=== PATIENT | female | born 1985 | race Caucasian/White ===

== ENCOUNTER 2017-05-15 17:56 | Emergency (ER) | payer OTHER ==
[2017-05-15] MEDS ORDERED: AMOX/CLAV 875 MG/125 MG TABLET PO STA (19:23)
--- NOTE | 2017-05-15 19:23 | ED Physician Documentation ---
PD HPI SKIN - Stated complaint Stated Complaint: BOLE ON TAILBONE - Chief complaint Chief Complaint: Wound - History obtained from History obtained from: Patient - History of Present Illness Timing - onset: Other (She has had a pilonidal cyst once in the past, her drained it at home about a year ago. It has recurred over the last week. It is painful but she declines pain medications.) Review of Systems Constitutional: reports: Reviewed and negative Cardiac: reports: Reviewed and negative Respiratory: reports: Reviewed and negative PD PAST MEDICAL HISTORY - Past Medical History Past Medical History: Yes Cardiovascular: Hypertension, High cholesterol Endocrine/Autoimmune: Type 2 diabetes GI: GERD MOTION PICTURE PROJECTIONIST: Ovarian cysts Psych: Anxiety - Past Surgical History /MOTION PICTURE PROJECTIONIST: section - Present Medications Home Medications: Ambulatory Orders Medication Instructions Recorded Confirmed Amox/Clav 875/125 [Augmentin] 1 each PO Q12H #14 tablet 05/15/17 Aspirin 05/15/17 05/15/17 Atorvastatin [Lipitor] 0 mg 05/15/17 Esomeprazole Magnesium [Nexium] 40 mg PO 05/15/17 Losartan Potassium 50 mg PO 05/15/17 Metformin HCl [Fortamet] 1,000 mg PO 05/15/17 - Allergies Allergies/Adverse Reactions: Allergies Allergy/AdvReac Type Severity Reaction Status Date / Time No Known Drug Allergies Allergy Verified 05/15/17 18:12 - Social History Does the pt smoke?: Yes Smoking Status: Former smoker Does the pt drink ETOH?: No Does the pt have substance abuse?: Yes Substance Use and Type: Marijuana PD ED PE NORMAL - Vitals Vital signs reviewed: Yes - General General: Alert and oriented X 3, No acute distress - Derm Derm: Other (Small pointed pilonidal cyst at the top of the gluteal crease) - Neuro Neuro: Alert and oriented X 3, Normal speech Results - Vitals Vitals: Vital Signs - 24 hr 05/15/17 18:12 Temperature 37.1 C Heart Rate 95 Respiratory 16 Rate Blood Pressure 160/95 H O2 Saturation 99 Oxygen O2 Source Room air Procedures - Abscess I&D (location) Pilonidal Preparation: Alcohol Incision: Incised with scalpel, Purulent drainage, Loculations broken, Packed ( with 1/4 inch) Other: Pt tolerated well, Dressing applied Departure - Departure Disposition: 01 Home, Self Care Clinical Impression: Pilonidal cyst with abscess Condition: Good Record reviewed to determine appropriate education?: Yes Instructions: ED Abscess IandD Prescriptions: Amox/Clav 875/125 [Augmentin] 1 each PO Q12H #14 tablet Comments: Check with your doctor in 2 days for packing removal, [place] with a general surgeon for definitive treatment of this pilonidal cyst. Your blood pressure was elevated today on check into the emergency department. This does not mean that you have hypertension, it is a common phenomenon to come to the emergency department and have elevated blood pressure. I recommend that you see your primary care physician within the week to have it rechecked when you are feeling better.
[2017-05-15 19:36] VITALS: BP 128/92
== END 2017-05-15 19:38 | disposition home or self-care (01) ==
LOC: ED 17:56
DX: L05.01 Pilonidal cyst with abscess (principal); I10 Essential (primary) hypertension; E11.9 Type 2 diabetes mellitus without complications; Z79.82 Long term (current) use of aspirin
CPT/HCPCS: 10080; 99283; A9270